=== PATIENT | male | born 1970 | race Caucasian/White ===

== ENCOUNTER 2022-01-14 13:29 | Outpatient (REF) | payer BC, SELFPAY ==
--- NOTE | ~2022-01-14 | XR_ITS ---
EXAMINATION: XR KNEE, LEFT CLINICAL INFORMATION: Sprain COMPARISON: None TECHNIQUE: Four views of the left knee. FINDINGS: No visible acute fracture or dislocation. No joint effusion.. Alignment is anatomic. Joint spaces are well maintained. Patellar tendon insertional enthesopathy. XR/XR knee LT 4V IMPRESSION: No evidence of acute osseous abnormality.
== END 2022-01-14 13:30 | disposition home or self-care (01) ==
LOC: HO.HMGCX 13:29
PROVIDERS: PCP Internal Medicine; Visit Provider Internal Medicine
DX: S83.92XD Sprain of unspecified site of left knee, subsequent encounter (principal)
CPT/HCPCS: 73564

== ENCOUNTER → 2023-01-09 07:30 | Outpatient (BNVA) | payer SELFPAY | PROVIDERS: PCP Internal Medicine; Visit Provider Internal Medicine | DX: Z02.79 Encounter for issue of other medical certificate (principal) ==

== ENCOUNTER → 2024-12-31 13:30 | Outpatient (BNVA) | payer SELFPAY | PROVIDERS: PCP Internal Medicine; Visit Provider Physician Assistant | DX: Z02.79 Encounter for issue of other medical certificate (principal) ==